=== PATIENT | female | born 1985 | race Caucasian/White ===

== ENCOUNTER 2017-04-13 14:52 | Emergency (ER) | payer OTHER ==
--- NOTE | 2017-04-13 15:17 | PDOC ---
History of Present Illness - General Stated Complaint: CHEST PAIN Time Seen by Provider: 04/13/17 14:57 History Source: Patient Exam Limitations: No Limitations - History of Present Illness Initial Comments: 04/13/17 15:09 31-year-old female with history of anxiety and smoking history presents with sudden onset of midsternal to left-sided chest which she describes as aching and sharp worsened with movement and deep breathing. Patient states was having a verbal altercation with her children when she went outside to smoke and developed the pain. Patient denies shortness of breath, palpitations, diaphoresis nausea, or dizziness presently. Patient denies recent surgery or recent travel. Presenting Symptoms: Chest Pain Timing/Duration: reports: intermittent Severity/Quality: reports: moderate, sharp Activities at Onset: reports: none Associated Symptoms: Yes: Chest Pain/pressure Past History - Travel Traveled outside of the country in the last 30 days: No Close contact w/someone who was outside of country & ill: No - Past Medical History Allergies/Adverse Reactions: Allergies Allergy/AdvReac Type Severity Reaction Status Date / Time methylphenidate HCl Allergy Severe Difficulty Verified 04/13/17 15:27 [From Ritalin] Breathing latex [Latex] Allergy Mild Rash Verified 04/13/17 15:27 cats Allergy Mild itchy eye Uncoded 04/13/17 15:27 pollen Allergy Mild itchy eye Uncoded 04/13/17 15:27 Home Medications: Ambulatory Orders Clonazepam [Klonopin] 1 mg PO QID 04/19/13 Albuterol Sulfate Inhaler - [Ventolin HFA Inhaler -] 1 - 2 inh PO QID PRN Famotidine [Pepcid -] 20 mg PO DAILY 11/04/13 Fluoxetine HCl [Prozac -] 60 mg PO DAILY 11/04/13 Acetaminophen W/ Codeine #3 [Tylenol # 3 -] 1 tab PO Q4H 09/13/14 Acetaminophen [Tylenol -] 650 mg PO Q4H 09/13/14 Budesonide/Formeterol Fumarate [SYMBICORT 160/4.5mcg -] 1 inh PO DAILY 09/13/14 Zolpidem Tartrate [Ambien] 10 mg PO HS PRN 09/13/14 Asthma: Yes Cancer: No Cardiac Disorders: No Diabetes: No HTN: No Psychiatric Problems: Yes (ANXIETY, DEPRESSION) Seizures: No Thyroid Disease: No - Surgical History Abdominal Surgery: Yes - Suicide/Smoking/Psychosocial Hx Anxiety: Yes (FEELINGS OF HOPELESSNESS/PTSD/OCD) Suicidal Ideation: Yes (HISTORY OF HOPELESSNESS NOT OF ACTUALLY DYING) Smoking Status: No Smoking History: Current every day smoker Have you smoked in the past 12 months: Yes Number of Cigarettes Smoked Daily: 6 Hx Alcohol Use: No Drug/Substance Use Hx: No Hx Substance Use Treatment: No Patient Lives Alone: No Lives with/in: spouse/SO Review of Systems - Review of Systems Able to Perform ROS?: Yes Constitutional: No: Symptoms Reported HEENTM: No: Symptoms Reported Respiratory: No: Symptoms reported Cardiac (ROS): Yes: Chest Pain ABD/GI: No: Symptoms Reported : No: Symptoms Reported Musculoskeletal: No: Symptoms Reported Integumentary: No: Symptoms Reported Neurological: No: Symptoms reported *Physical Exam - Vital Signs Last Vital Signs Temp Pulse Resp BP Pulse Ox 98.3 F 74 16 121/77 95 04/13/17 15:36 04/13/17 15:36 04/13/17 15:36 04/13/17 15:36 04/13/17 15:36 - Physical Exam General Appearance: Yes: Nourished, Appropriately Dressed. No: Apparent Distress HEENT: negative: Pale Conjunctivae Respiratory/Chest: positive: Chest Tender (anterior chest wall), Lungs Clear, Normal Breath Sounds. negative: Respiratory Distress, Accessory Muscle Use Cardiovascular: positive: Regular Rhythm, Regular Rate. negative: Murmur Gastrointestinal/Abdominal: positive: Soft. negative: Tenderness Extremity: positive: Normal Capillary Refill Integumentary: positive: Normal Color, Warm, Moist. negative: Erythema Neurologic: positive: Motor Strength 5/5 (ambulatory). negative: Normal Mood/ Affect (anxious) Heart Score/ECG Review - History History: Slightly suspicious - Electrocardiogram EKG: Normal - Age Age: </= 45 - Risk Factors Based on the list above the patient has:: No risk factors known - Troponin Troponin: </= normal limit - Score Heart Score - Total: 0 - ECG Intrepretation Rhythm: Regular Rhythm (nsr at 67. No st depression or elevation) ED Treatment Course - Medications Given in the ED: ED Medications Discontinued Medications Generic Name Dose Route Start Last Admin Trade Name Freq PRN Reason Stop Dose Admin Ketorolac Tromethamine 30 mg 04/13/17 15:41 04/13/17 16:28 Toradol Injection - IVPUSH 04/13/17 15:42 Not Given ONCE STA Medical Decision Making - Medical Decision Making 04/13/17 15:51 Patient came in for complaints of anterior chest pain after having a verbal stressful altercation with her children. Patient arrives with normal vital signs but did have reproducible chest pain to the anterior chest wall. Patient ordered for cardiac workup, chest x-ray, EKG and Toradol *DC/Admit/Observation/Transfer Diagnosis at time of Disposition: Eloped - Discharge Dispostion Disposition: HOME - Referrals Referrals: Riaz Baker MD [Primary Care Provider] -
[2017-04-13] MEDS ORDERED: KETOROLAC TROMETHAMINE 30 MG/1 ML VIAL IVPUSH STA (15:41)
[2017-04-13 15:42] VITALS: BP 121/77; PULSE 74; TEMP 98.3; BMI 35.6
--- NOTE | 2017-04-14 13:57 | EKG ---
Test Reason : Blood Pressure : / mmHG Vent. Rate : 067 BPM Atrial Rate : 067 BPM P-R Int : 144 ms QRS Dur : 084 ms QT Int : 410 ms P-R-T Axes : 053 050 025 degrees QTc Int : 433 ms NORMAL SINUS RHYTHM NORMAL ECG NO PREVIOUS ECGS AVAILABLE Confirmed by PATRICK DUMAS MD ([id number]) on 04/14/2017 1:57:14 PM Referred By: Confirmed By:PATRICK DUMAS MD
== END 2017-04-13 16:00 | disposition home or self-care (01) ==
LOC: JER 14:52
DX: F41.8 Other specified anxiety disorders (principal); R07.89 Other chest pain; F43.0 Acute stress reaction
CPT/HCPCS: 93005; 93010; 99282-25